=== PATIENT | female | born 1950 | race Hispanic/Latino ===

== ENCOUNTER → 2025-09-12 | Outpatient (CLI) | payer OTHER ==
[~2025-09-12] MED LIST: FAMO20TA8 PO; IOHEXOL 350 MG/ML 100ML INFUS..BTL IV ONE; NITR0.3T11 SL
--- NOTE | 2025-09-12 11:00 | HMCSR ---
APPROVED REPORT EXAM: Two-dimensional and M-mode echocardiogram with Doppler and color Doppler. INDICATION ICD: I10, R00.2 2D Dimensions RVDd3.8 cmLVEF(%)47.0 (>50%)LVED Vol(simp.)66.0 mL IVSd0.7 (0.7-1.1cm)FS(%)24 %LVES Vol(simp.)32.0 mL LVDd4.7 (3.8-5.6cm)LA (2D)4.9 (1.6-4.0cm)LVEF(%, simp.)51 % PWd1.2 (0.7-1.1cm)Ao Root(2D)3.2 (2.0-3.7cm)LA ESV INDEX (BP)62.94 mL/m2 IVSs1.0 cmLVOT diam2.0 (1.8-2.4cm) LVDs3.6 (2.5-4.0cm)IVC diam1.8 cm PWs1.0 cm M-Mode Dimensions EPSS1.0 cm LA (MM)5.1 (1.6-4.0cm) Ao Root(MM)3.1 (2.0-3.7cm) Aortic Valve AoV Vmax1.4 m/Caroline Peak GR7.6 mmHgLVOT Vmax0.9 m/s AoV VTI0.3 mAo Mean GR4.6 mmHgLVOT VTI0.19 m YULI (VMAX)1.94 cm2AVA (VTI) 2.1 cm2 Mitral Valve MV E Vmax66.2 cm/sDECEL Eiaf097 ms MV A Vmax31.9 cm/sP 1/2 T47 ms E/A ratio2.1MVA (PHT)4.6 cm2 TDI E/E' Zolzyr32.0E/E' Lateral9.5 Medial E' Peak V3.31 cm/sLateral E' Peak V6.95 cm/s Pulmonary Valve PV Vmax0.7 m/sPV VTI0.15 mPV Mean GR1.1 mmHg PV Peak GR1.8 mmHgPI End Sarah. Mohan 166.2 cm/s Tricuspid Valve TR Vmax2.8 m/sRAP (EST) 8 gjCyDPYL95.5 mmHg TR Peak GR30.5 mmHg Left Ventricle The left ventricle is normal size. There is normal left ventricular wall thickness. LVEF is 50-55%. S tage II diastolic dysfunction. Right Ventricle The right ventricle is normal size. The right ventricular systolic function is normal. Atria The left atrium is severely dilated. LASVI 63mL/m2 The right atrium is borderline dilated. Aortic Valve The aortic valve is trileaflet normal in structure. Trace of aortic regurgitation is present. There i s no aortic valvular stenosis. Mitral Valve The mitral valve is normal in structure. There is mild mitral valve regurgitation noted. There is no mitral valve stenosis. Tricuspid Valve The tricuspid valve is normal in structure. There is mild tricuspid valve regurgitation noted. Pulmonic Valve The pulmonary valve is normal in structure. There is no pulmonic valvular stenosis. There is mild pul jose m valvular regurgitation. Great Vessels The aortic root is normal in size. The IVC is normal in size and collapses <50% with inspiration. Pericardium There is no pericardial effusion. Other Information Quality : AdequateRhythm : NSR Conclusion LVEF is 50-55%. Stage II diastolic dysfunction. Biatrial enlargement There is normal left ventricular wall thickness. Mild mitral valve regurgitation Mild tricuspid valve regurgitation Mild pulmonic valvular regurgitation.
--- NOTE | 2025-09-12 22:26 | CARDIOLOGY ---
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 A dedicated, limited window, coronary imaging protocol was used, with single breath-hold, retrospective ECG gating, and automated arrhythmia rejection. 100 cc of low osmolar contrast agent: Omnipaque 350 was delivered via a 18-gauge IV catheter in the right antecubital fossa, using a power injector and followed by 60 cc of normal saline bolus as a chaser. Collimated images were reformatted at 0.5 mm intervals, and sent to an offline independent workstation for interpretation, using 3D anatomic reconstructions: Curved multiplanar reconstructions, maximum intensity projections, and multiplanar imaging. 5 mg IV metoprolol was administered prior to scanning. 0.8 mg SL nitroglycerin was given. CORONARY ARTERY DESCRIPTIONS: The coronary arteries arise in normal position. Left main coronary artery: Normal caliber vessel that bifurcates into the LAD and LCx. No stenosis. Left anterior descending coronary artery: Normal caliber vessel and gives rise to diagonal and septal branches. No stenosis. Left circumflex coronary artery: Normal caliber, nondominant and gives rise to a large OM branch. No stenosis. Right coronary artery: Large, dominant vessel giving rise to the PL and PDA branches. No stenosis. CAD-RADs: 0, absence of CAD. Thoracic Aorta: Normal diameter. Carolina Ye MD Cardiovascular [facility] CAROLINA YE MD Sep 12, 2025 22:26
== END | disposition home or self-care (01) ==
LOC: RAH 07:55
PROVIDERS: ATTEND Internal Medicine
DX: I08.8 Other rheumatic multiple valve diseases (principal); R00.2 Palpitations; I11.9 Hypertensive heart disease without heart failure; I51.89 Other ill-defined heart diseases
CPT/HCPCS: 93306; 75574; J3490; Q9967 ×2